=== PATIENT | male | born 2005 | race Hispanic/Latino ===

== ENCOUNTER 2024-06-14 17:28 | Emergency (ER) | payer SELFPAY ==
[2024-06-14] MEDS ORDERED: IBUPROFEN 400 MG TAB ONE (17:49)
[2024-06-14 18:27] LABS: SARS-CoV-2 Antigen CONTROL BLUE LINE VIS/BG OK; SARS-CoV-2 Antigen Rapid Res Negative (Negative)
--- NOTE | 2024-06-14 19:19 | RAD REPORT ---
EXAMINATION: TWO VIEW CHEST XR CLINICAL INDICATION: Male, 18 years old. [facility] MAIN Cough;Fever Bed Name: 17 TECHNIQUE: 2 view radiographs of the chest were performed. COMPARISON: No prior exam. FINDINGS: The lungs are well inflated and clear. No pneumothorax or sizable effusion. The heart is normal in si ze. Mediastinal contours are unremarkable. IMPRESSION: No acute or significant abnormalities.
--- NOTE | 2024-06-14 19:49 | ER ---
Nurse's Notes [facility] Name: Joao Ceballos Age: 18 yrs Sex: Male : 2005 Arrival Date: 06/14/2024 Time: 17:28 Bed 17 Private MD: Diagnosis: Influenza due to identified novel influenza A virus with other respiratory manifestations Presentation: 06/14 17:35 Chief complaint: Patient states: COUGH AND CONGESTION X 3 DAYS WORSE AT NIGHT WITH A db HEADACHE. STATES TOOK ASPIRIN FOR HEADACHE YESTERDAY. Coronavirus screen: Client denies travel out of the [place] in the last 14 days. At this time, the client does not indicate any symptoms associated with coronavirus-19. Ebola Screen: Patient negative for fever greater than or equal to 101.5 degrees Fahrenheit, and additional compatible Ebola Virus Disease symptoms Patient denies exposure to infectious person. Patient denies travel to an Ebola-affected area in the 21 days before illness onset. No symptoms or risks identified at this time. Initial Sepsis Screen: Does the patient meet any 2 criteria? No. Patient's initial sepsis screen is negative. Does the patient have a suspected source of infection? No. Patient's initial sepsis screen is negative. Risk Assessment: Do you want to hurt yourself or someone else? Patient reports no desire to harm self or others. Onset of symptoms was June 14, 2024. 17:35 Method Of Arrival: Ambulatory db 17:35 Acuity: DORETHA 3 db Triage Assessment: 17:38 General: Appears in no apparent distress. comfortable, Behavior is calm, cooperative. db Pain: Complains of pain in head. EENT: Reports nasal congestion. Neuro: Level of Consciousness is awake, alert, obeys commands, Oriented to person, place, time, situation, Speech is normal. Respiratory: Airway is patent Respiratory effort is even, unlabored, Respiratory pattern is regular, symmetrical. Historical: - Allergies: 17:38 No Known Allergies; db - PMHx: 17:38 None; db - PSHx: 17:38 None; db - Immunization history:: Adult Immunizations unknown. - Infectious Disease History:: Denies. - Social history:: Smoking status: Patient denies any tobacco usage or history of. Screenin:40 [facility] ED Fall Risk Assessment (Adult) History of falling in the last 3 months, me1 including since admission No falls in past 3 months (0 pts) Confusion or Disorientation No (0 pts) Intoxicated or Sedated No (0 pts) Impaired Gait No (0 pts) Mobility Assist Device Used No (0 pt) Altered Elimination No (0 pt) Score/Fall Risk Level 0 - 2 = Low Risk Maintained a safe environment, Provided non-skid footwear, Hourly rounding (assess needs \T\ fall precautionary measures) done. Abuse screen: Denies threats or abuse. Nutritional screening: No deficits noted. Tuberculosis screening: No symptoms or risk factors identified. Assessment: 17:40 General: Appears ill, well groomed, well developed, well nourished, Behavior is calm, me1 cooperative, appropriate for age, Reports COUGH AND CONGESTION X 3 DAYS WORSE AT NIGHT WITH A HEADACHE. STATES TOOK ASPIRIN FOR HEADACHE YESTERDAY. Pain: Complains of pain in head Pain does not radiate. Pain currently is 6 out of 10 on a pain scale. Quality of pain is described as aching, Pain began 2-3 days ago. Is intermittent. Neuro: Level of Consciousness is awake, alert, obeys commands, Oriented to person, place, time, situation, Appropriate for age. Cardiovascular: Patient's skin is warm and dry. Respiratory: Airway is patent Respiratory effort is even, unlabored, Respiratory pattern is regular, symmetrical. Respiratory: Reports cough that is. GI: No signs and/or symptoms were reported involving the gastrointestinal system. Abdomen is round non-distended, Bowel sounds present X 4 quads. : No signs and/or symptoms were reported regarding the genitourinary system. EENT: Reports nasal congestion since 3 days ago pain when swallowing. Derm: Skin is intact, is healthy with good turgor, Skin is pink, warm \T\ dry. Musculoskeletal: No signs and/or symptoms reported regarding the musculoskeletal system. Circulation, motion, and sensation intact. Range of motion: intact in all extremities. Vital Signs: 17:35 BP 153 / 92; Pulse 96; Resp 16; Temp 101.2(O); Pulse Ox 96% ; Weight 122.47 kg; Height db 6 ft. 2 in. ; 18:00 BP 146 / 85; Pulse 86; Resp 15; Pulse Ox 97% ; me1 19:00 BP 142 / 87; Pulse 88; Resp 16; Temp 99.2; Pulse Ox 96% ; me1 17:35 Body Mass Index 34.67 (122.47 kg, 187.96 cm) db ED Course: 17:33 Patient arrived in ED. im 17:34 Stanford Jalloh PA is PHCP. cp 17:34 Stanford Rodriguez MD is Attending Physician. cp 17:37 Triage completed. db 17:38 Arm band placed on Patient placed in an exam room. db 17:40 Patient has correct armband on for positive identification. Bed in low position. Call me1 light in reach. Side rails up X2. Provided Education on: POC. Verbalized understanding.. Client placed on continuous cardiac and pulse oximetry monitoring. NIBP monitoring applied. Pulse ox on. NIBP on. 17:40 No provider procedures requiring assistance completed. Patient did not have IV access me1 during this emergency room visit. 17:51 Alysa Abreu, [place] is Primary Nurse. me1 17:51 Influenza Screen (a \T\ B) Sent. me1 17:51 Strep Sent. me1 17:51 SARS RAPID Sent. me1 17:51 COVID swab sent to lab. Flu and/or RSV swab sent to lab. Strep swab sent to lab. me1 18:13 XRAY Chest Pa And Lat (2 Views) In Process Unspecified. EDMS Administered Medications: 17:54 Drug: Ibuprofen PO 800 mg PO once Route: PO; me1 20:07 Follow up: Response: No adverse reaction; Temperature is decreased me1 Medication: 17:40 VIS not applicable for this client. me1 Outcome: 19:48 Discharge ordered by MD. cp 20:04 Discharged to home ambulatory, with family, me1 20:04 Condition: stable 20:04 Discharge instructions given to patient, family, Instructed on discharge instructions, follow up and referral plans. medication usage, Demonstrated understanding of instructions, follow-up care, medications, Prescriptions given X 2, 20:05 Patient left the ED. me1 Signatures: Dispatcher [employer] EDMS Stanford Jalloh PA PA cp Benton, Danielle, RN RN db Melania Franklin Alysa Abreu, RN RN me1 Corrections: (The following items were deleted from the chart) 18:14 17:35 Chief complaint: Patient states: COUGH AND CONGESTION X 3 DAYS WORSE AT NIGHT me1 WITH A HEADACHE. STATES TOOK ASPIRIN FOR HEADACHE YESTERDAY db
--- NOTE | 2024-06-14 19:49 | EDPHYS ---
Physician Documentation [facility] Name: Joao Ceballos Age: 18 yrs Sex: Male : 2005 Arrival Date: 06/14/2024 Time: 17:28 Bed 17 Private MD: ED Physician Stanford Rodriguez HPI: 06/14 18:10 This 18 yrs old Male presents to ER via Ambulatory with complaints of Flu cp Symptoms. 18:10 The patient or guardian reports cough, congestion, headache, fever. Onset: The cp symptoms/episode began/occurred 3 day(s) ago. Historical: - Allergies: 17:38 No Known Allergies; db - PMHx: 17:38 None; db - PSHx: 17:38 None; db - Immunization history:: Adult Immunizations unknown. - Infectious Disease History:: Denies. - Social history:: Smoking status: Patient denies any tobacco usage or history of. ROS: 18:15 Constitutional: Positive for fever, cp 18:15 Eyes: Negative for injury, pain, redness, and discharge, cp 18:15 Respiratory: Positive for cough, Negative for shortness of breath, wheezing, 18:15 Abdomen/GI: Negative for abdominal pain, vomiting, diarrhea, constipation, 18:15 ENT: Positive for sore throat, cp 18:15 Neuro: Positive for headache, Negative for altered mental status, cp 18:15 All other systems are negative, Exam: 18:20 Constitutional: The patient appears in no acute distress, alert, awake, non-toxic, well cp developed, well nourished, obese, 18:20 Head/Face: Normocephalic, atraumatic. cp 18:20 Eyes: Periorbital structures: appear normal, Conjunctiva: normal, no exudate, no injection, Sclera: no appreciated abnormality, Lids and lashes: appear normal, bilaterally, 18:20 ENT: External ear(s): are unremarkable, Ear canal(s): are normal, clear, TM's: dullness, bilaterally, Nose: is normal, Mouth: Lips: moist, Oral mucosa: moist, Posterior pharynx: Airway: no evidence of obstruction, patent, Tonsils: no enlargement, no exudate, erythema, that is mild, exudate, is not appreciated, 18:20 Neck: ROM/movement: Meningeal signs: are not present, 18:20 Chest/axilla: Inspection: normal, 18:20 Cardiovascular: Rate: normal, Rhythm: regular, 18:20 Respiratory: the patient does not display signs of respiratory distress, Respirations: normal, no use of accessory muscles, no retractions, labored breathing, is not present, Breath sounds: are clear throughout, no decreased breath sounds, no stridor, no wheezing, 18:20 Abdomen/GI: Exam negative for discomfort, distension, guarding, Inspection: abdomen appears normal, Vital Signs: 17:35 BP 153 / 92; Pulse 96; Resp 16; Temp 101.2(O); Pulse Ox 96% ; Weight 122.47 kg; Height db 6 ft. 2 in. ; 18:00 BP 146 / 85; Pulse 86; Resp 15; Pulse Ox 97% ; me1 19:00 BP 142 / 87; Pulse 88; Resp 16; Temp 99.2; Pulse Ox 96% ; me1 17:35 Body Mass Index 34.67 (122.47 kg, 187.96 cm) db MDM: 17:36 Medical Screening Exam initiated rivka 19:48 Data reviewed: vital signs, nurses notes, lab test result(s), radiologic studies, plain cp films, and as a result, I will discharge patient. 19:48 Differential diagnosis: bronchitis, flu, URI, pneumonia, strep throat. I considered the cp following discharge prescriptions or medication management in the emergency department Medications were administered in the Emergency Department. See MAR. Counseling: I had a detailed discussion with the patient and/or guardian regarding the historical points, exam findings, and any diagnostic results supporting the discharge/admit diagnosis, lab results, radiology results, to return to the emergency department if symptoms worsen or persist or if there are any questions or concerns that arise at home. Response to treatment: the patient's symptoms have mildly improved after treatment, and as a result, I will discharge patient. 06/14 17:43 Order name: SARS RAPID; Complete Time: 18:40 cp 06/14 17:43 Order name: Strep cp 06/14 17:43 Order name: Influenza Screen (a \T\ B); Complete Time: 18:40 cp 06/14 18:30 Order name: Throat Culture EDMS 06/14 17:43 Order name: XRAY Chest Pa And Lat (2 Views); Complete Time: 19:46 cp 06/14 19:46 Interpretation: Report reviewed. cp Administered Medications: 17:54 Drug: Ibuprofen PO 800 mg PO once Route: PO; me1 20:07 Follow up: Response: No adverse reaction; Temperature is decreased me1 Disposition Summary: 06/14/24 19:48 Discharge Ordered Notes: Location: Home cp Problem: new cp Symptoms: have improved cp Condition: Stable cp Diagnosis - Influenza due to identified novel influenza A virus with other respiratory cp manifestations Followup: cp - With: Private Physician - When: 2 - 3 days - Reason: Worsening of condition Discharge Instructions: - Discharge Summary Sheet cp - Influenza, Adult cp Forms: - Work release form cp - Medication Reconciliation Form cp - Antibiotic Education cp - Prescription Opioid Use cp - Patient Portal Instructions cp - Leadership Thank You Letter cp Prescriptions: - Bromfed DM 2-30-10 mg/5 mL Oral syrup - administer 10 milliliter ORAL route every 6 hours as needed for cold symptoms; cp 240 milliliter; Refills: 0, Product Selection Permitted - Ibuprofen 800 mg Oral Tablet - take 1 tablet ORAL route every 8 hours As needed take with food; 30 tablet; cp Refills: 0, Product Selection Permitted Addendum: 06/17/2024 14:58 Co-signature as Attending Physician, Stanford Rodriguez MD I agree with the assessment and c calvo plan of care. Signatures: Dispatcher [employer] Stanford Oquendo MD MD cha Page, Corey, PA PA cp Brittni Bell, RN [place] db Alysa Abreu RN RN me1
[2024-06-14 20:12] VITALS: BP 142/87; TEMP 99.2; O2SAT 96
== END 2024-06-14 20:05 | disposition home or self-care (01) ==
LOC: ER 17:28
DX: J10.1 Influenza due to other identified influenza virus with other respiratory manifestations (principal); Z11.52 Encounter for screening for COVID-19
CPT/HCPCS: 36415; 71046; 87070; 87081; 87804; 87811; 99284

== ENCOUNTER 2024-10-03 12:57 | Emergency (ER) | payer SELFPAY ==
--- NOTE | 2024-10-03 13:25 | ER ---
Nurse's Notes [facility] Name: Joao Ceballos Age: 19 yrs Sex: Male : 2005 Arrival Date: 10/03/2024 Time: 12:57 Bed 9 Private MD: Diagnosis: Otitis media, left ear Presentation: 10/03 13:05 Chief complaint: Patient states: left ear sounds muffled like he has water in it, not iw really painful except when he coughs , symptoms started this week. Coronavirus screen: At this time, the client does not indicate any symptoms associated with coronavirus-19. Ebola Screen: No symptoms or risks identified at this time. Initial Sepsis Screen: Does the patient meet any 2 criteria? No. Patient's initial sepsis screen is negative. Does the patient have a suspected source of infection? No. Patient's initial sepsis screen is negative. Risk Assessment: Do you want to hurt yourself or someone else? Patient reports no desire to harm self or others. 13:05 Method Of Arrival: Ambulatory iw 13:05 Acuity: DORETHA 4 iw 13:47 Onset of symptoms was September 28, 2024. ll1 13:47 Onset of symptoms was September 28, 2024. ll1 13:48 Onset of symptoms is unknown. ll1 Triage Assessment: 13:29 General: Appears in no apparent distress. Behavior is calm, cooperative, appropriate ll1 for age. Pain: Complains of pain in left ear. Historical: - Allergies: 13:07 No Known Allergies; iw - Home Meds: 13:07 None [Active]; iw - PMHx: 13:07 None; iw - PSHx: 13:07 None; iw - Immunization history:: Adult Immunizations not up to date. - Infectious Disease History:: Denies. - Social history:: Smoking status: Patient denies any tobacco usage or history of. Screenin:29 [facility] ED Fall Risk Assessment (Adult) History of falling in the last 3 months, ll1 including since admission No falls in past 3 months (0 pts) Confusion or Disorientation No (0 pts) Intoxicated or Sedated No (0 pts) Impaired Gait No (0 pts) Mobility Assist Device Used No (0 pt) Altered Elimination No (0 pt) Score/Fall Risk Level 0 - 2 = Low Risk Maintained a safe environment, Hourly rounding (assess needs \T\ fall precautionary measures) done. Abuse screen: Denies threats or abuse. Nutritional screening: No deficits noted. Tuberculosis screening: No symptoms or risk factors identified. Assessment: 13:29 General: Appears uncomfortable, Behavior is calm, cooperative, appropriate for age. ll1 Pain: Complains of pain in left ear Quality of pain is described as aching. EENT: Reports pain in left ear muffled hearing, feels like water in L ear. Vital Signs: 13:05 BP 142 / 78; Pulse 99; Resp 19; Temp 98.7; Pulse Ox 99% on R/A; Weight 121.11 kg; iw Height 6 ft. 1 in. ; Pain 0/10; 13:05 Body Mass Index 35.23 (121.11 kg, 185.42 cm) iw 13:05 Pain Scale: Adult iw ED Course: 13:00 Patient arrived in ED. im 13:06 Feng Burnham MD is Attending Physician. sp3 13:06 Triage completed. iw 13:07 Arm band placed on. iw 13:08 Zac Gutierrez, RN is Primary Nurse. ll1 13:08 Patient placed in an exam room, on a stretcher. ll1 13:29 Patient has correct armband on for positive identification. Provided Education on: ll1 finish all prescribed antibiotics. 13:29 No provider procedures requiring assistance completed. Patient did not have IV access ll1 during this emergency room visit. Administered Medications: No medications were administered Medication: 13:47 VIS not applicable for this client. ll1 Outcome: 13:25 Discharge ordered by . sp3 13:29 Patient left the ED. ll1 13:29 Discharged to home ambulatory, ll1 13:29 Condition: stable 13:29 Discharge instructions given to patient, Instructed on discharge instructions, follow up and referral plans. medication usage, Demonstrated understanding of instructions, follow-up care, medications, Prescriptions given X 1, Signatures: Denisse Ye RN RN Zac Gutierrez RN RN ll1 Feng Burnham MD MD sp3 Melania Franklin Corrections: (The following items were deleted from the chart) 13:06 13:05 Chief complaint: Patient states: left ear sounds muffled like he has water in it, iw not really painful except when he coughs iw 13:07 13:05 Pulse 99bpm; Resp 19bpm; Pulse Ox 99% RA; Temp 98.7F; 121.11 kg; Height 6 ft. 1 iw in.; BMI: 35.2; Pain 0/10, Adult; iw : 13:43 General: Appears uncomfortable, Behavior is calm, cooperative, appropriate for ll1 age, ll1 13:43 EENT: Reports pain in left ear muffled hearing, feels like water in L ear. [place] [id number] 13:43 Pain: Complains of pain in left ear Quality of pain is described as aching, [place] [id number]
--- NOTE | 2024-10-03 13:26 | EDPHYS ---
Physician Documentation [facility] Name: Joao Ceballos Age: 19 yrs Sex: Male : 2005 Arrival Date: 10/03/2024 Time: 12:57 Bed 9 Private MD: ED Physician Feng Burnham HPI: 10/03 13:18 This 19 yrs old Male presents to ER via Ambulatory with complaints of Ear Pain.sp3 13:18 19-year-old male with no past medical history presents with left ear pain and "feeling sp3 of being underwater". Symptoms have been going on for the last 2 days. He denies any fever, neck pain, headache, chest pain, shortness of breath, back pain, rash, known sick contacts, travel history or any other signs or symptoms on ROS at this time.. Historical: - Allergies: 13:07 No Known Allergies; iw - Home Meds: 13:07 None [Active]; iw - PMHx: 13:07 None; iw - PSHx: 13:07 None; iw - Immunization history:: Adult Immunizations not up to date. - Infectious Disease History:: Denies. - Social history:: Smoking status: Patient denies any tobacco usage or history of. ROS: 13:19 Constitutional: Negative for fever, chills, and weight loss, Eyes: Negative for injury, sp3 pain, redness, and discharge, Neck: Negative for injury, pain, and swelling, Cardiovascular: Negative for chest pain, palpitations, and edema, Respiratory: Negative for shortness of breath, cough, wheezing, and pleuritic chest pain, Abdomen/GI: Negative for abdominal pain, nausea, vomiting, diarrhea, and constipation, Back: Negative for injury and pain, : Negative for injury, bleeding, discharge, and swelling, MS/Extremity: Negative for injury and deformity, Skin: Negative for injury, rash, and discoloration, 13:19 All other systems are negative, Exam: 13:21 Constitutional: This is a well developed, well nourished patient who is awake, alert, sp3 and in no acute distress. Head/Face: Normocephalic, atraumatic. Eyes: Pupils equal round and reactive to light, extra-ocular motions intact. Lids and lashes normal. Conjunctiva and sclera are non-icteric and not injected. Cornea within normal limits. Periorbital areas with no swelling, redness, or edema. Neck: Trachea midline, no thyromegaly or masses palpated, and no cervical lymphadenopathy. Supple, full range of motion without nuchal rigidity, or vertebral point tenderness. No Meningismus. Chest/axilla: Normal chest wall appearance and motion. Nontender with no deformity. No lesions are appreciated. Cardiovascular: Regular rate and rhythm with a normal S1 and S2. No gallops, murmurs, or rubs. Normal PMI, no JVD. No pulse deficits. Respiratory: Lungs have equal breath sounds bilaterally, clear to auscultation and percussion. No rales, rhonchi or wheezes noted. No increased work of breathing, no retractions or nasal flaring. Abdomen/GI: Soft, non-tender, with normal bowel sounds. No distension or tympany. No guarding or rebound. No evidence of tenderness throughout. Back: No spinal tenderness. No costovertebral tenderness. Full range of motion. Skin: Warm, dry with normal turgor. Normal color with no rashes, no lesions, and no evidence of cellulitis. 13:21 ENT: Left TM erythema and fluid behind the membrane.. Vital Signs: 13:05 BP 142 / 78; Pulse 99; Resp 19; Temp 98.7; Pulse Ox 99% on R/A; Weight 121.11 kg; iw Height 6 ft. 1 in. ; Pain 0/10; 13:05 Body Mass Index 35.23 (121.11 kg, 185.42 cm) iw 13:05 Pain Scale: Adult iw MDM: 13:09 Medical Screening Exam initiated sp3 13:21 Data reviewed: vital signs, nurses notes. ED course: 19-year-old male with left otitis sp3 media. We will treat with antibiotic and OTC antihistamine with decongestant. Of advised him on what to buy OTC which she acknowledged. Follow-up with PCP as needed.. Administered Medications: No medications were administered Disposition Summary: 10/03/24 13:25 Discharge Ordered Notes: Location: Home sp3 Condition: Stable sp3 Diagnosis - Otitis media, left ear sp3 Followup: sp3 - With: Private Physician - When: Upon discharge from the Emergency Department - Reason: Continuance of care Discharge Instructions: - Discharge Summary Sheet aa5 - Otitis Media, Adult sp3 Forms: - Work release form aa5 - Medication Reconciliation Form sp3 - Antibiotic Education sp3 - Prescription Opioid Use sp3 - Patient Portal Instructions sp3 - Leadership Thank You Letter sp3 Prescriptions: - Augmentin 875-125 mg Oral Tablet - take 1 tablet ORAL route every 12 hours for 10 days; 20 tablet; Refills: 0, sp3 Product Selection Permitted Signatures: Denisse Ye RN RN iw Patel, Setul, MD MD sp3
[2024-10-03 13:41] VITALS: BP 142/78; TEMP 98.7; O2SAT 99
== END 2024-10-03 13:29 | disposition home or self-care (01) ==
LOC: ER 12:57
DX: H66.92 Otitis media, unspecified, left ear (principal)